=== PATIENT | male | born 1970 | race Caucasian/White ===

== ENCOUNTER 2020-01-09 17:19 | Emergency (ER) | payer OTHER ==
[~2020-01-09] VITALS: Ht 175.3 cm; Wt 80.7 kg
[~2020-01-09 17:19] MED LIST: MAC100 PO; PRILOSEC20 MG PO
[2020-01-09 19:07] VITALS: Ht 175.3 cm; Wt 80.7 kg
[2020-01-09 19:18] VITALS: BP 139/108
== END 2020-01-09 19:18 | disposition home or self-care (01) ==
LOC: ED 17:19
DX: B34.9 Viral infection, unspecified (principal); I10 Essential (primary) hypertension; K21.9 Gastro-esophageal reflux disease without esophagitis; Z20.828 Contact with and (suspected) exposure to other viral communicable diseases
CPT/HCPCS: U0003-CS